=== PATIENT | male | born 1985 | race Caucasian/White ===

== ENCOUNTER 2022-03-06 08:14 | Emergency (ER) | payer OTHER, SELFPAY ==
--- NOTE | ~2022-03-06 | XR_ITS ---
EXAMINATION: XR SHOULDER, LEFT CLINICAL INFORMATION: Left shoulder pain following a fall. COMPARISON: None TECHNIQUE: AP, Grashey, and scapular Y views of the left shoulder. FINDINGS: There is a displaced, comminuted fracture through the middle third of the left clavicle with multiple resultant fracture fragments measuring up to 2.8 cm. There is overlap of the dominant fracture fragments measuring 2.2 cm in ML dimension with superior displacement of the proximal fracture fragment. Mild acromioclavicular joint space widening which could indicate a capsular injury. Mild osteoarthritis. No glenohumeral fracture or dislocation. No osseous erosion. XR/XR shoulder LT min 2V IMPRESSION: Displaced and comminuted middle clavicular fracture with overlap of the dominant fracture fragments. Mild widening of the acromioclavicular joint which could indicate a capsular injury.
[2022-03-06 08:18] VITALS: BP 155/96; PULSE 100; RESP 15; TEMP 36.6; O2SAT 98; BMI 25.0
--- NOTE | 2022-03-06 08:24 | ED.EXTPRO ---
HPI - Extremity Problem General Chief complaint: Extremity Injury, Upper Stated complaint: shoulder INJ Time Seen by Provider: 03/06/22 08:24 Source: patient Mode of arrival: ambulatory Limitations: no limitations History of Present Illness HPI Narrative: Patient is a 37 year old male presenting to the emergency department today with left shoulder pain. Patient states that he was playing football this morning when he dove and landed awkwardly on his left shoulder. Patient states that as soon as it happened, he felt a snap and knew something was wrong. Patient denies hitting his head with the incident. Patient denies any loss of consciousness with the incident. Patient denies any dizziness, lightheadedness, abdominal pain, nausea, vomiting, fever, chills, blurry vision, double vision, loss of vision, chest pain, difficulty breathing, shortness of breath, back pain, night sweats, pain with urination, increased urinary frequency, increased urinary urgency, blood in his urine or stool, syncope or a near syncopal episode, bowel incontinence, bladder incontinence, bowel retention, bladder retention, or any other complaints at this time. MD Complaint: extremity pain Onset (ago): hour(s) Pain Consistency: constant Location: left Severity scale (1-10): 5 Quality: aching Radiation: none Relieving factors: nothing Exacerbating factors: range of motion and palpation Associated symptoms: denies other symptoms Related Data Previous Rx's Medication Instructions Recorded hydrocodone 5 mg-acetaminophen 325 1 tab PO Q8H PRN severe pain 03/06/22 mg tablet (scale score 7-10) 2 days #7 tabs Allergies Allergy/AdvReac Type Severity Reaction Status Date / Time No Known Allergies Allergy Verified 03/06/22 08:49 Review of Systems Constitutional: Constitutional: Reports no additional constitutional complaints, Denies chills, Denies fever(s) and Denies night sweats Eyes: Eyes: Reports no additional eye complaints, Denies blurry vision, Denies change in vision, Denies diplopia, Denies eye discharge, Denies loss of vision and Denies eye pain ENT: Denies dizziness Cardiovascular: Cardiovascular: Reports no additional cardiovascular complaints, Denies chest pain, Denies lightheadedness, Denies Loss of Consciousness and Denies dyspnea Respiratory: Respiratory: Reports no additional respiratory complaints and Denies dyspnea Gastrointestinal: Gastrointestinal: Reports no additional gastrointestinal complaints, Denies abdominal pain, Denies melena, Denies hematochezia, Denies change in bowel habits and Denies change in stool character Genitourinary: Genitourinary: Reports no additional male genitourinary complaints, Denies hematuria, Denies oliguria, Denies difficulty urinating, Denies dysuria, Denies urinary frequency, Denies urinary hesitancy, Denies urinary incontinence and Denies urinary urgency Musculoskeletal: Musculoskeletal: Reports no additional musculoskeletal complaints, Denies numbness and Denies tingling Comments: left shoulder pain Neurologic: Denies dizziness, Denies loss of vision, Denies numbness and Denies tingling Psychiatric: Psychiatric: Reports no additional psychiatric complaints Endocrine: Endocrine: Reports no additional endocrine complaints Hematologic/Lymphatic: Hematologic/Lymphatic: Reports no additional hematologic/lymphatic complaints Allergic/Immunologic: Allergic/Immunologic: Reports no additional allergic/immunologic complaints PMFSH Past Medical History Attestation statement: The following information was validated with the patient. Source: old records reviewed Social History Social History Advance Directives: No Advance Directives Information Provided: No Physical Exam Vital Signs: Vital Signs: Last Vital Signs Temp 98 F 03/06/22 08:18 Pulse 100 03/06/22 08:18 Resp 15 03/06/22 08:18 BP 155/96 H 03/06/22 08:18 Pulse Ox 98 03/06/22 08:18 O2 Del Method 03/06/22 08:18 BMI result Body Mass Index 25.0 Const: General: cooperative, no acute distress, alert and awake Nutritional Appearance: well nourished Orientation/consciousness: patient oriented x3 Limitations: no limitations HEENT: Head: Yes normal to inspection and Yes atraumatic Ears: hearing grossly normal bilaterally and external ears normal General nose exam: Normal external nose present, no nasal discharge noted and no epistaxis Face and sinus: Yes normal facial exam, No abrasion and No laceration Mouth: Normal oral and palatal mucosa present, no drooling and no muffled voice Eyes: General: appearance normal, both eyes and all related structures Periorbital: periorbital findings normal Eyelids: Yes eyelids normal Conjunctivae: conjunctivae normal Pupils: Equal, round and reactive pupils present EOM: EOMs intact bilaterally Neck: Neck: Yes normal visual inspection, Yes full ROM and Yes no lymphadenopathy Chest: Chest palpation & inspection: normal inspection of the chest Resp: Effort & Inspection: normal respiratory effort and able to speak in complete sentences Auscultation: clear to auscultation bilaterally Cardio: Rate: regular rate Rhythm: regular rhythm GI: Inspection: Yes normal to inspection Neuro: General: patient oriented x3 and moves all extremities Cranial nerves: Yes Equal, round and reactive pupils present Cognition (Neuro): normal cognition Motor exam (neuro): 5/5 motor strength present throughout Sensory Exam: Normal double simultaneous stimulation for sensation Coordination: [id number] test normal Extrem: Other: obvious deformity to the left clavicle General: Yes capillary refill normal Psych: Appearance: grossly normal Mental Status: mental status grossly normal Affect: normal affect Attitude: cooperative Thought process: Normal thought process present Thought content: Normal thought content present Insight: Good insight present (Psych) MDM - Extremity (Nontraumatic) MDM Narrative Medical decision making narrative: Patient is a 37 year old male presenting to the emergency department today with left shoulder pain. Patient's physical exam showed obvious deformity of the left clavicle. Patient's left shoulder x-ray showed a displaced and comminuted middle clavicular fracture with overlap of the dominant fracture fragments, mild widening of the acromioclavicular joint which could indicate a capsular injury. I spoke to Alejandra, the orthopedic PA-C ambulance operations supervisor who recommended the patient be placed in a sling and follow up with the office at 8am on Tuesday03/08/2022 morning. I explained my physical exam findings as well as all test results to the patient. I answered all questions asked by the patient. Patient's left upper extremity was placed in a sling, without incident. Patient's PMS was intact prior to and after sling placement. I stressed the importance of the patient taking his medication as prescribed. I stressed the importance of the patient following up with the orthopedic provider as scheduled and his primary care provider. I stressed the importance of the patient returning to the emergency department immediately if his symptoms were to worsen or if he were to develop any dizziness, shortness of breath, difficulty breathing, chest pain, blurry vision, loss of vision, nausea, vomiting, abdominal pain, fever, chills, back pain, or any other complaints. Patient verbalized agreement and understanding with this treatment plan and discharge. Differential Diagnosis Differential diagnosis: Unlikely gout (clavicle fracture, shoulder pain, shoulder injury) Medical Records Attestation: I reviewed the patient's medical records. Imaging Data Left shoulder x-ray: Attestation: I personally reviewed and interpreted this imaging study as follows: My impression: Acute clavicle fracture. Radiologist's impression: EXAMINATION: XR SHOULDER, LEFT CLINICAL INFORMATION: Left shoulder pain following a fall.? COMPARISON: None? TECHNIQUE: AP, Grashey, and scapular Y views of the left shoulder. FINDINGS: There is a displaced, comminuted fracture through the middle third of the left clavicle with multiple resultant fracture fragments measuring up to 2.8 cm. There is overlap of the dominant fracture fragments measuring 2.2 cm in ML dimension with superior displacement of the proximal fracture fragment. Mild acromioclavicular joint space widening which could indicate a capsular injury. Mild osteoarthritis. No glenohumeral fracture or dislocation. No osseous erosion.? XR/XR shoulder LT min 2V IMPRESSION: Displaced and comminuted middle clavicular fracture with overlap of the dominant fracture fragments. Mild widening of the acromioclavicular joint which could indicate a capsular injury. Dictated By: Sadi Cadena MD Signed By: Electronically signed by Sadi Cadena MD 03/06/22 0853 Procedures Orthopedic Splinting/Casting Injury #1: Side: left Upper Extremity Injury Location: clavicle Upper Extremity Immobilizer: sling/shoulder immobilizer Discharge Plan Discharge Clinical Impression: Broken clavicle Patient Disposition: Home, Self-Care Additional Instructions: Follow up with the orthopedic provider on Tuesday morning at 8am. Follow up with your primary care provider. Return to the emergency department immediately if your symptoms worsen or if you develop any dizziness, shortness of breath, difficulty breathing, chest pain, blurry vision, loss of vision, nausea, vomiting, abdominal pain, fever, chills, back pain, or any other complaints. Prescriptions: New hydrocodone-acetaminophen 5-325 mg tablet 1 tab PO Q8H PRN (Reason: severe pain (scale score 7-10)) 2 Days Qty: 7 0RF Rx Instructions: Partial Fill upon patient request. Referrals: [facility] [place] Family Medicine [Provider Group] (Call to establish and follow up with a primary care provider. If you have a primary care provider, please call and follow up with them. ) [facility] [place] Primary Care, [place] [Provider Group] (Call to establish and follow up with a primary care provider. If you have a primary care provider, please call and follow up with them. ) [facility] [place] Primary [facility],[place] [Provider Group] (Call to establish and follow up with a primary care provider. If you have a primary care provider, please call and follow up with them. ) [facility] [place] [facility] [Provider Group] (Follow up with the orthopedic office at 8am on Tuesday (03/08/2022).) Stand Alone Forms: Work/School Release Print Language: Romanian
== END 2022-03-06 09:24 | disposition home or self-care (01) ==
PROVIDERS: Emergency Provider Student in an Organized Health Care Education/Training Program
DX: S42.002A Fracture of unspecified part of left clavicle, initial encounter for closed fracture (principal); M25.512 Pain in left shoulder; W01.0XXA Fall on same level from slipping, tripping and stumbling without subsequent striking against object, initial encounter; Y93.61 Activity, american tackle football; Y92.321 Football field as the place of occurrence of the external cause; Y99.9 Unspecified external cause status; Z79.899 Other long term (current) drug therapy
CPT/HCPCS: 29105; 73030; 99283; 99284

== ENCOUNTER 2022-03-10 09:36 | Day surgery (SDC) | payer OTHER, SELFPAY ==
--- NOTE | 2022-03-09 09:00 | P.CONAN_ITS ---
HPI - Anesthesia Eval Consult details Narrative: 37yo M for Left Clavicle ORIF PMFSH Active Problems Active Problems: All Active Problems (Updated 03/08/22 @ 08:36 by Alejandra Epsinoza PA-C) Fracture, clavicle closed, shaft (Acute) Past Medical History Medical History HTN (hypertension) Surgical History Surgical History (Updated 03/10/22 @ 09:47 by Flores Schneider RN) History of surgery on lower extremity Hx of removal of cyst Social History Social History (Updated 03/08/22 @ 08:07 by Dary Lujan Erika) Patient Tobacco Use Status: Former Tobacco user Quit Date: 20 yr ago Current occupational status: employed 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
[2022-03-10] VITALS (9 sets, daily range): BP systolic 135–149; BP diastolic 92–103; PULSE 58–82; RESP 15–17; TEMP 36.3–36.9; O2SAT 97–100; BMI 25.0
--- NOTE | ~2022-03-10 | FL_ITS ---
EXAMINATION: XR FLUOROSCOPY WITH IMAGES CLINICAL INFORMATION: ORIF left apical COMPARISON: Left shoulder 03/06/2022 TECHNIQUE: Fluoroscopy performed by Dr. Bell none. Fluoroscopy time: <1 minutes DAP: 0.0209 mGycm2 Images: 2 FINDINGS: The comminuted overlapping mid clavicular fracture has been stabilized with a superior metallic plate and screws with the fracture fragments in alignment. No other bony abnormality seen. FL/FL guidance in OR IMPRESSION: Normal alignment of left mid clavicular comminuted fracture status post interval stabilization with superior metallic plate and several screws.
[2022-03-10] MEDS: Lactated Ringers 1,000 ML 100 ML IVCONT (10:08)
--- NOTE | 2022-03-10 10:36 | MHC.SHP ---
Pre-Procedural Eval Section A Date of Service: 03/10/22 The patient is an INPATIENT: No Changes since office visit: Yes Patient answered all questions; No Cold of Flu in the past 2 weeks, No New Medical Problems and No Changes in Medication The History & Physical has been completed within 30 days and I have reviewed it.: Yes Section B Chief Complaint: fx clavical Allergies: Allergies Allergy/AdvReac Type Severity Reaction Status Date / Time No Known Allergies Allergy Verified 03/08/22 08:11 Plan I have reviewed the history and physical and performed a pertinent physical examination on my patient. No changes have occurred unless specified.
--- NOTE | 2022-03-10 10:53 | HO.ANESPROP2 ---
[facility] Active Problems Active Problems: All Active Problems (Updated 03/10/22 @ 09:45 by Flores Schneider RN) Fracture, clavicle closed, shaft (Acute) Past Medical History Medical History HTN (hypertension) Family History Family history of problems with anesthesia: No Surgical History Surgical History (Updated 03/10/22 @ 09:47 by Flores Schneider RN) History of surgery on lower extremity Hx of removal of cyst History of Problems with Anesthesia: No Social History Social History (Updated 03/08/22 @ 08:07 by WILFREDO Thompson) Patient Tobacco Use Status: Former Tobacco user Quit Date: 20 yr ago Use of substances other than those prescribed or required for medical reasons: Yes Substance Use Frequency: Daily Are you DNR?: No Advance Directives: No Advance Directives Information Provided: Yes Current occupational status: employed 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 Meds Allergies Allergy/AdvReac Type Severity Reaction Status Date / Time No Known Allergies Allergy Verified 03/08/22 08:11 Active Medications: Current Medications Fentanyl (Fentanyl Citrate/Pf 100 Mcg/2 Ml Vial) 25 mcg IVPUSH Q5M PRN; Protocol PRN Reason: Pain, Moderate (Pain Scale 4-6 Hydromorphone HCl (Hydromorphone Hcl 0.5 Mg/0.5 Ml Syringe) 0.5 mg IVPUSH Q5M PRN; Protocol PRN Reason: Pain, Severe (Pain Scale 7-10) Lactated Ringer's (Lr) 1,000 mls @ 100 mls/hr IVCONT .Q10H DAISY Last Admin: 03/10/22 10:08 Dose: 100 mls/hr Ondansetron HCl (Ondansetron Hcl 4 Mg/2 Ml Vial) 4 mg IVPUSH ONCE PRN PRN Reason: Nausea and Vomiting Oxycodone HCl (Oxycodone Hcl Immed Release 5 Mg Tablet) 5 mg PO ONCE PRN PRN Reason: Pain, Severe (Pain Scale 7-10) Home Medications Medication Instructions Recorded Confirmed Last Taken Type No Known Home Meds 03/10/22 03/10/22 Unknown History Exam Exam Date and Time: March 10, 2022 1053 Height,Weight and Vital Signs: Height 5 ft 7 in Weight 72.575 kg Last Vital Signs Temp 98.4 F 03/10/22 09:51 Pulse 78 03/10/22 09:51 Resp 15 03/10/22 09:51 BP 149/103 H 03/10/22 09:51 Pulse Ox 98 03/10/22 09:51 O2 Del Method 03/10/22 09:51 Airway Mallampati Class: III TM Dist: >3cm Neck ROM: Full Loose/Missing/Broken Teeth: No Heart: rrr Lungs: clear Assessment and Plan Final Anesthetic Review Family History of Problems with Anesthesia: No History of Problems with Anesthesia: No NPO: Yes ASA Class: II Final Preanesthetic Review: No Changes in Pt Med Stat, Meds/Allgs Chart Reviewed, Consent Obtained/Reviewed and Anes Risks/Benef Reviewed Patient Risk: Low Procedure Risk: Low Anesthetic Plan Anesthetic Plan: GA Disposition: Standard PACU
--- NOTE | 2022-03-10 13:01 | P.BOP_ITS ---
Brief Operative Note Date of Service: 03/10/22 Pre-op diagnosis: left clavicle fracture Post-op diagnosis: same Procedure: ORIF left clavicle Implants: [place] Surgeon: Bandar Bell MD Anesthesia: GETA and local Was an It Application Development Manager used for this Procedure?: No Estimated blood loss (mL): 50 IV fluids (mL): 800 Pathology: none sent Condition: stable Disposition: PACU
[2022-03-10] MEDS: oxyCODONE HCl Immed Release 5 MG TABLET PO (13:09)
[2022-03-10] MEDS: HYDROmorphone HCl 0.5 MG/0.5 ML SYRINGE IVPUSH (13:50)
--- NOTE | 2022-03-23 12:04 | W.PM.OPN ---
Operative Note Operative Note Date of Service: 03/10/22 Narrative: Date of Service: 03/10/22 Pre-op diagnosis: left clavicle fracture Post-op diagnosis: same Procedure: ORIF left clavicle Implants: [place] Surgeon: Bandar Bell MD Anesthesia: GETA and local Was an Supervisor Pole Yard used for this Procedure?: No Estimated blood loss (mL): 50 IV fluids (mL): 800 Pathology: none sent Condition: stable Disposition: PACU Patient was brought to the operating room and placed in the beach chair position on the surgical table. The site was prepped and draped in standard sterile fashion and a time out was called to identify proper site, proper procedure and IV antibiotics per weight were administered. I began by making a superior incision over the clavicle. Once through skin Littler scissors were used to dissect through the clavicular fascia. The medial fracture fragment was identified and a lobster claw tenaculum was used to stabilize it. The lateral fracture fragments were then identified and, using a combination of irrigation and sharp debridement, I cleaned up the fracture fragments. This was the shortened and comminuted and an 8 hole bridge plate was selected. I used an additional lobster claw to provisionally reduce the fracture and the bridge plate was placed superiorly and held in place with olive-tipped K-wires while radiographs were obtained. Visually I was satisfied with the fracture reduction and radiographs demonstrated sufficient length of the plate. I then used standard AO technique to place 3 bicortical screws medial to the fracture and 3 bicortical screws laterally so that the plate spanned the comminuted midshaft fracture. Interfragmentary screws were applied through the plate. Again biplanar fluoroscopy was used to confirm appropriate hardware location, fracture reduction and screw length. Once I was satisfied with these parameters I copiously irrigated and closed with absorbable suture, skin glue and Steri-Strips. Patient was placed in sterile dressing and extubated brought to recovery room stable condition there were no known complications.
== END 2022-03-10 15:30 | disposition home or self-care (01) ==
LOC: HO.SSS 09:37
PROVIDERS: Visit Provider Orthopaedic Surgery
PROC: (CPT 23515; principal; 2022-03-10 11:40)
DX: S42.022A Displaced fracture of shaft of left clavicle, initial encounter for closed fracture (principal); I10 Essential (primary) hypertension; W18.39XA Other fall on same level, initial encounter; Y93.62 Activity, american flag or touch football; Y92.9 Unspecified place or not applicable; Y99.8 Other external cause status; Z87.891 Personal history of nicotine dependence
CPT/HCPCS: 23515; C1713; J0690; J1100; J1170; J2250; J2405; J3010

== ENCOUNTER 2022-03-25 12:11 | Outpatient (REF) | payer OTHER, SELFPAY ==
--- NOTE | ~2022-03-25 | XR_ITS ---
EXAMINATION: XR CLAVICLE, LEFT CLINICAL INFORMATION: Fracture COMPARISON: Previous x-rays February 2022 TECHNIQUE: 2 of the left clavicle. FINDINGS: There is a plate and screws transfixing the left clavicle fracture. Alignment appears improved. Fracture lines are still seen. The acromioclavicular joint is upper normal in size measuring 7 to 8 mm. There is arthritis at the acromioclavicular joint. The glenohumeral joint is normal. Soft tissues are normal. XR/XR clavicle LT IMPRESSION: ORIF of left clavicle fracture.
== END 2022-03-25 12:12 | disposition home or self-care (01) ==
LOC: HO.HOSX 12:11
PROVIDERS: Visit Provider Orthopaedic Surgery
DX: S42.022A Displaced fracture of shaft of left clavicle, initial encounter for closed fracture (principal)
CPT/HCPCS: 73000

== ENCOUNTER 2022-04-22 07:49 | Outpatient (REF) | payer OTHER, SELFPAY ==
--- NOTE | ~2022-04-22 | XR_ITS ---
EXAMINATION: XR CLAVICLE, LEFT CLINICAL INFORMATION: History of clavicular fracture. COMPARISON: Prior radiographs, most recently 03/25/2022. TECHNIQUE: Straight AP and cephalad angulated AP views of the left clavicle. FINDINGS: There is stable alignment status-post ORIF of a mid to distal left clavicular fracture, with intact orthopedic fixator plate and fixator screws. A small inferior butterfly fragment shows stable mild displacement. There is no significant new callus formation. No soft tissue gas or foreign body is seen. XR/XR clavicle LT IMPRESSION: There is continued stable alignment status-post ORIF of a mid to distal left clavicular fracture. No hardware failure or loosening is seen.
== END 2022-04-22 07:50 | disposition home or self-care (01) ==
LOC: HO.HOSX 07:49
PROVIDERS: Visit Provider Orthopaedic Surgery
DX: S42.023A Displaced fracture of shaft of unspecified clavicle, initial encounter for closed fracture (principal)
CPT/HCPCS: 73000

== ENCOUNTER 2022-06-03 12:07 | Outpatient (REF) | payer OTHER, SELFPAY ==
--- NOTE | ~2022-06-03 | XR_ITS ---
EXAMINATION: XR CLAVICLE, LEFT CLINICAL INFORMATION: Left clavicular fracture status post ORIF. COMPARISON: 04/22/2022 left clavicle fracture. TECHNIQUE: Two views of the left clavicle. FINDINGS: The patient is status post left clavicular ORIF with left mid to distal clavicular fixation plate and cortical screws in place showing good anatomic alignment and no evidence for hardware malfunction. There has been interval healing of the left midclavicular fracture. The joint spaces are unremarkable. The soft tissues are unremarkable. XR/XR clavicle LT IMPRESSION: Good anatomic alignment. No hardware abnormality.
== END 2022-06-03 12:08 | disposition home or self-care (01) ==
LOC: HO.HOSX 12:07
PROVIDERS: Visit Provider Orthopaedic Surgery
DX: S42.022A Displaced fracture of shaft of left clavicle, initial encounter for closed fracture (principal)
CPT/HCPCS: 73000

== ENCOUNTER 2022-07-15 | Outpatient (REF) | payer OTHER, SELFPAY ==
--- NOTE | ~2022-07-15 | XR_ITS ---
EXAMINATION: XR clavicle LT CLINICAL INFORMATION: Reason for Exam S42.023A - Displaced fracture of shaft of unspecified clavicle, initial ... COMPARISON: None. TECHNIQUE: Two views of the left clavicle XR/XR clavicle LT FINDINGS/IMPRESSION: * Plate and screws hardware device affixes mid clavicular fracture in satisfactory alignment without evidence of hardware complication. * Joint spaces are maintained without significant degenerative change. * No soft tissue abnormality.
== END 2022-07-15 00:01 | disposition home or self-care (01) ==
LOC: HO.HOSX
PROVIDERS: Visit Provider Orthopaedic Surgery
DX: S42.022A Displaced fracture of shaft of left clavicle, initial encounter for closed fracture (principal); X58.XXXA Exposure to other specified factors, initial encounter; Y93.9 Activity, unspecified; Y92.9 Unspecified place or not applicable; Y99.9 Unspecified external cause status
CPT/HCPCS: 73000